=== PATIENT | female | born 1980 | race Caucasian/White ===

== ENCOUNTER 2018-03-23 22:20 | Emergency (ER) | payer MEDICAID ==
[2018-03-23 22:41] VITALS: O2SAT 100
[2018-03-23] MEDS ORDERED: Sodium Chloride 0.9% 1,000 ML IV STA (22:55)
[2018-03-23] MEDS ORDERED: Morphine 4 mg/ml ISec IVP STA (23:41)
[2018-03-23 23:48] LABS: PH,URINE 6.5 (4.7-8.0); URINE BILIRUBIN NEGATIVE (NEGATIVE); URINE BLOOD MODERATE (NEGATIVE); URINE GLUCOSE (UA) NEGATIVE (NEGATIVE); URINE LEUKOCYTE ESTERASE NEGATIVE Leu/uL (NEGATIVE); URINE PROTEIN TRACE mg/dL (<30 mg/dL); URINE UROBILINOGEN 0.2 E.U./dL (<1 E.U./dL)
[2018-03-23 23:49] LABS: BASO # 0.06 K/mm3 (0.0-2.0); BASO % 0.6 % (0.0-3.0); EOS # 1.6 (0.0-0.7); EOS % 14.8 % (1.5-5.0); GRAN # 6.4 (1.4-6.5); GRAN % 58.9 % (50.0-68.0); HEMOGLOBIN 8.9 g/dL (12.0-16.0); LYMPH # 2.2 (1.2-3.4); LYMPH % 20.5 % (22.0-35.0); MEAN CELL VOLUME 63.8 fl (80.0-105.0); MEAN CORPUSCULAR HGB CONC 29.8 g/dl (31.0-37.0); MEAN PLATELET VOLUME 9.4 fl (7.0-11.0); MONO # 0.6 (0.1-0.6); MONO % 5.2 % (1.0-6.0); RED CELL DISTRIBUTION WIDTH 22.2 % (11.5-14.5); WHITE BLOOD COUNT 10.9 10^3/ul (4.5-11.0)
[2018-03-23 23:54] LABS: URINE APPEARANCE CLEAR (CLEAR); URINE COLOR YELLOW (YELLOW)
[2018-03-23 23:57] LABS: URINE BACTERIA RARE (NEG); URINE CALCIUM OXALATE CRYSTALS OCC /hpf; URINE WBC 0 - 2 /hpf (0-6)
[2018-03-24 00:06] LABS: ALB/GLOB RATIO 1.2 (1.1-1.8); ALBUMIN 4.3 g/dL (3.0-4.8); ALT/SGPT 26 U/L (7-56); AST/SGOT 28 U/L (14-36); BLOOD UREA NITROGEN 17 mg/dL (7-21); GFR AFRICAN-AMERICAN > 60; GFR NON-AFRICAN AMERICAN > 60; LIPASE 197 U/L (23-300)
[2018-03-24] MEDS ORDERED: Iohexol 350 MG/100 ML VIAL ONE (00:12)
[2018-03-24 01:05] VITALS: RESP 18
--- NOTE | 2018-03-24 01:33 | ED PDOC ---
Arrival/HPI - General Chief Complaint: Abdominal Pain Time Seen by Provider: 03/23/18 22:39 Historian: Patient - History of Present Illness Narrative History of Present Illness (Text): 03/24/18 02:04 37-year-old female presents today with abdominal pain that started approximately one hour of lower abdominal pain radiating to the upper abdomen. Patient denies chest pain or shortness of breath. She describes a burning sensation in the abdomen and severe cramping. Patient states she is currently menstruating. She denies any urinary symptoms. Patient denies fevers or chills. She denies dizziness or weakness. Patient states she took Tylenol and another anti-inflammatory medication without improvement. Patient denies back pain. No other complaints Time/Duration: 1 hour Past Medical History - Provider Review Nursing Documentation Reviewed: Yes - Travel History Have you recently traveled outside [place] w/in the past 3 mons?: No - Infectious Disease Hx of Infectious Diseases: None - Psychiatric Hx Substance Use: No - Surgical History Hx Section: Yes (x3) - Anesthesia Hx Anesthesia: No Hx Anesthesia Reactions: No Hx Malignant Hyperthermia: No Family/Social History - Physician Review Nursing Documentation Reviewed: Yes Family/Social History: Unknown Family HX Smoking Status: Never Smoked Hx Alcohol Use: No Hx Substance Use: No Allergies/Home Meds Allergies/Adverse Reactions: Allergies No Known Allergies Allergy (Verified 03/23/18 22:41) Review of Systems - Review of Systems Constitutional: absent: Fatigue, Fevers Respiratory: absent: SOB, Cough Cardiovascular: absent: Chest Pain, Palpitations Gastrointestinal: Abdominal Pain, Nausea. absent: Constipation, Diarrhea, Vomiting Genitourinary Female: Vaginal Bleeding (currently menstrating). absent: Dysuria , Frequency, Hematuria, Vaginal Discharge Musculoskeletal: absent: Arthralgias, Back Pain, Neck Pain Skin: absent: Rash, Pruritis Neurological: absent: Headache, Dizziness Psychiatric: absent: Anxiety, Depression, Suicidal Ideation Physical Exam Vital Signs Reviewed: Yes Vital Signs Temp Pulse Resp BP Pulse Ox 03/24/18 01:04 76 18 101/65 100 03/23/18 22:36 98.7 F 74 17 104/59 L 100 Temperature: Afebrile Blood Pressure: Normal Pulse: Regular Respiratory Rate: Normal Appearance: Positive for: Well-Appearing, Non-Toxic, Comfortable Pain Distress: None Mental Status: Positive for: Alert and Oriented X 3 - Systems Exam Head: Present: Atraumatic Mouth: Present: Moist Mucous Membranes Neck: Present: Normal Range of Motion Respiratory/Chest: Present: Clear to Auscultation, Good Air Exchange. No: Respiratory Distress, Accessory Muscle Use Cardiovascular: Present: Regular Rate and Rhythm, Normal S1, S2. No: Murmurs Abdomen: Present: Tenderness (+ minimal epigastric and periumbical tenderness). No: Distention, Peritoneal Signs, Rebound, Guarding Back: Present: Normal Inspection. No: CVA Tenderness, Midline Tenderness, Paraspinal Tenderness Upper Extremity: Present: Normal ROM Lower Extremity: Present: Normal ROM Neurological: Present: GCS=15, Speech Normal Skin: Present: Warm, Dry, Normal Color. No: Rashes Psychiatric: Present: Alert, Oriented x 3, Normal Affect Medical Decision Making ED Course and Treatment: 03/24/18 02:06 Patient is nontoxic well appearing with stable vital signs presenting with abdominal pain CBC hbg; 8.9 CMP wnl Lipase wnl EKG: Normal sinus rhythm at 66 bpm normal axis normal intervals no ST elevations Urinalysis + blood. pt currently menstrating CAT scan: FINDINGS: Lung bases: No acute findings. No mass. No consolidation. ABDOMEN: Liver: No acute findings. No mass. Gallbladder and bile ducts: No acute findings. No calcified stones. No ductal dilation. Pancreas: No acute findings. No mass. No ductal dilation. Spleen: No acute findings. No splenomegaly. Adrenals: No acute findings. No mass. Kidneys and ureters: No acute findings. No solid mass. No hydronephrosis. Stomach and bowel: No acute findings. No obstruction. No mucosal thickening. PELVIS: Appendix: No findings to suggest acute appendicitis. Bladder: No acute findings. No mass. Reproductive: No acute findings. ABDOMEN and PELVIS: Intraperitoneal space: No acute findings. No free air. No significant fluid collection. Bones/joints: No acute fracture. No dislocation. Soft tissues: No acute findings. Vasculature: No acute findings. No abdominal aortic aneurysm. Lymph nodes: No acute findings. No enlarged lymph nodes. IMPRESSION: No acute findings Patient reassessment: pt feeling better after medications; Discussed all results with patient and her in depth. advised patient that she is anemic and will need to follow-up with her primary care physician regarding her low blood count. Patient was advised to return if she develops dizziness or weakness, chest pain or shortness of breath or if any other concerning symptoms develop. pt was advised to take iron supplements. per ; pt with hx of anemia, during last hbg was 10 per . advised f/u with pmd and GI specialist. advised immediate return if symptoms worsen,persist or if new symptoms develop. Patient verbalizes understanding of discharge instructions and need for immediate followup. all aspects of this case were discussed the attending of record. Impression: Abdominal pain, anemia Motrin every 6 hours as needed for pain Pepcid one tablet daily Follow up with primary care physician within the next 2 days regarding your low blood count Follow up with the GI specialist within the next 2 days. Return immediately if symptoms worsen persist or if new symptoms develop: High fevers, increasing pain, vomiting, diarrhea or any other concerning symptoms develop Reassessment Condition: Re-examined, Improved - Lab Interpretations Lab Results: 03/23/18 23:20 03/23/18 23:20 Lab Results 03/23/18 23:20: WBC 10.9, RBC 4.69, Hgb 8.9 L, Hct 29.9 L, MCV 63.8 L, MCH 19.0 L, MCHC 29.8 L, RDW 22.2 H, Plt Count 324, MPV 9.4, Gran % 58.9, Lymph % (Auto) 20.5 L, [place] % (Auto) 5.2, Eos % (Auto) 14.8 H, Baso % (Auto) 0.6, Gran # 6.40, Lymph # (Auto) 2.2, [place] # (Auto) 0.6, Eos # (Auto) 1.6 H, Baso # (Auto) 0.06 03/23/18 23:20: Sodium 143, Potassium 3.5 L, Chloride 103, Carbon Dioxide 28, Anion Gap 14, BUN 17, Creatinine 0.6 L, Est GFR ( Amer) > 60, Est GFR ( Non-Af Amer) > 60, Random Glucose 97, Calcium 9.0, Total Bilirubin 0.1 L, AST 28 , ALT 26, Alkaline Phosphatase 70, Total Protein 8.0, Albumin 4.3, Globulin 3.7 , Albumin/Globulin Ratio 1.2, Lipase 197 03/23/18 23:20: Urine Color Yellow, Urine Appearance Clear, Urine pH 6.5, Ur Specific [place] 1.025, Urine Protein Trace H, Urine Glucose (UA) Negative, Urine Ketones Trace H, Urine Blood Moderate H, Urine Nitrate Negative, Urine Bilirubin Negative, Urine Urobilinogen 0.2, Ur Leukocyte Esterase Negative, Urine RBC 2 - 5, Urine WBC 0 - 2, Ur Epithelial Cells 1 - 3, Calcium Oxalate Crystal Occ, Urine Bacteria Rare, Urine Other Mucus - RAD Interpretation Radiology Orders: 03/23/18 23:42 ABD & PELVIS IV CONTRAST ONLY [CT] Stat - Medication Orders Current Medication Orders: Discontinued Medications Sodium Chloride (Sodium Chloride 0.9%) 1,000 mls @ 999 mls/hr IV .Q1H1M STA Stop: 03/23/18 23:55 Last Admin: 03/23/18 23:59 Dose: 999 mls/hr eMAR Start Stop Document 03/23/18 23:59 GREG (Rec: 03/24/18 00:56 [id number]) Intravenous Solution Start Date 03/23/18 Start Time 23:59 End Date 03/24/18 End time 00:31 Total Infusion Time 32 Morphine Sulfate (Morphine) 4 mg IVP STAT STA Stop: 03/23/18 23:42 Last Admin: 03/24/18 00:54 Dose: 4 mg MAR Pain Assessment Document 03/24/18 00:54 GREG (Rec: 03/24/18 00:55 [id number]) Pain Reassessment Is this a pain reassessment? Yes Location Pain Location Body Site Abdomen Description Description Cramping Pain Behavior Rubbing Site IVP Administration Document 03/24/18 00:54 GREG (Rec: 03/24/18 00:55 [id number]) Charges for Administration # of IVP Administrations 1 Disposition/Present on Arrival - Present on Arrival Any Indicators Present on Arrival: No History of DVT/PE: No History of Uncontrolled Diabetes: No Urinary Catheter: No History of Decub. Ulcer: No History Surgical Site Infection Following: None - Disposition Have Diagnosis and Disposition been Completed?: Yes Diagnosis: Abdominal pain, Anemia Disposition: HOME/ ROUTINE Disposition Time: 02:22 Patient Plan: Discharge Patient Problems: Current Active Problems Problem Status Onset Abdominal pain Acute Anemia Acute Condition: GOOD Discharge Instructions (ExitCare): Acute Abdomen (Belly Pain) Additional Instructions: Motrin every 6 hours as needed for pain Pepcid one tablet daily Follow up with primary care physician within the next 2 days regarding your anemia and pain. Follow up with the GI specialist within the next 2 days. Return immediately if symptoms worsen persist or if new symptoms develop: High fevers, increasing pain, vomiting, diarrhea or any other concerning symptoms develop Prescriptions: Famotidine [Pepcid] 20 mg PO DAILY #30 tab Ibuprofen [Motrin] 600 mg PO Q6H PRN #20 tab PRN Reason: pain/fever reduction Referrals: Stan Amato MD [Medical Doctor] - Follow up with primary Henrry Levy [Family Provider] - Follow up with primary Forms: [facility] (Chinese), WORK NOTE
[2018-03-24 03:53] VITALS: BP 93/62; PULSE 63; TEMP 97.5
[2018-03-24 05:05] LABS: RBC 4.69 10^6/uL (3.5-6.1)
--- NOTE | 2018-03-24 08:39 | CT ---
Date of service: 03/24/2018 PROCEDURE: CT Abdomen and Pelvis with contrast HISTORY: abd pain COMPARISON: None. TECHNIQUE: Contrast dose: 100 cc of Omni 350 Radiation dose: Total exam DLP = 818 mGy-cm. This CT exam was performed using one or more of the following dose reduction techniques: Automated exposure control, adjustment of the mA and/or kV according to patient size, and/or use of iterative reconstruction technique. FINDINGS: LOWER THORAX: Unremarkable. LIVER: Unremarkable. No gross lesion or ductal dilatation. GALLBLADDER AND BILE DUCTS: Unremarkable. PANCREAS: Unremarkable. No gross lesion or ductal dilatation. SPLEEN: Unremarkable. ADRENALS: Unremarkable. No mass. KIDNEYS AND URETERS: Unremarkable. No hydronephrosis. No solid mass. VASCULATURE: Unremarkable. No aortic aneurysm. BOWEL: Unremarkable. No obstruction. No gross mural thickening. APPENDIX: Normal appendix. PERITONEUM: Unremarkable. No free fluid. No free air. LYMPH NODES: Unremarkable. No enlarged lymph nodes. BLADDER: Unremarkable. REPRODUCTIVE: Unremarkable. BONES: No acute fracture. OTHER FINDINGS: The report concurs with the preliminary [facility] report IMPRESSION: No acute intra-abdominal findings
[2018-03-24] MEDS ORDERED: Midazolam 2 MG/2 ML VIAL ONE (08:43)
--- NOTE | 2018-03-24 10:09 | CARD ---
APPROVED REPORT Date of service: 03/24/2018 EKG Measurement Heart [id number] <Conclusion> Normal sinus rhythm Low voltage QRS Borderline ECG
== END 2018-03-24 02:45 | disposition home or self-care (01) ==
LOC: EDBD → ED 22:20
DX: R10.9 Unspecified abdominal pain (principal); D64.9 Anemia, unspecified
CPT/HCPCS: 74177; 80053; 81001; 83690; 85025; 93005; 96361; 96374; 99285; J2270; J7030; Q9967